=== PATIENT | female | born 1945 | race Caucasian/White ===

== ENCOUNTER → 2021-03-04 | Day surgery (SDC) | payer MEDICARE, OTHER ==
[~2021-03-04] VITALS: Ht 154.9 cm; Wt 46.3 kg
[~2021-03-04] MED LIST: ASPIRIN EC81 MG PO; BONIVA 150MG T150 MG PO; NOVOLOG VI100 UNIT/1 SQ; PAXIL20 MG PO; SIMVASTATIN10 MG PO; SYNTHROID25 MCG PO; TOPROL XL 50 MG50 MG PO; TRESIBA100 UNIT/1 SC
== END | disposition home or self-care (01) ==
LOC: FAS 06:34
DX: Z12.11 Encounter for screening for malignant neoplasm of colon (principal); K63.89 Other specified diseases of intestine; K64.4 Residual hemorrhoidal skin tags; R63.4 Abnormal weight loss; Z80.0 Family history of malignant neoplasm of digestive organs; I10 Essential (primary) hypertension; E11.9 Type 2 diabetes mellitus without complications; E78.00 Pure hypercholesterolemia, unspecified; E03.9 Hypothyroidism, unspecified; I25.10 Atherosclerotic heart disease of native coronary artery without angina pectoris; J44.9 Chronic obstructive pulmonary disease, unspecified; K21.9 Gastro-esophageal reflux disease without esophagitis; E78.5 Hyperlipidemia, unspecified; M81.0 Age-related osteoporosis without current pathological fracture; F17.210 Nicotine dependence, cigarettes, uncomplicated; Z95.1 Presence of aortocoronary bypass graft; Z68.1 Body mass index [BMI] 19.9 or less, adult; Z79.4 Long term (current) use of insulin; Z79.82 Long term (current) use of aspirin; Z79.899 Other long term (current) drug therapy; Z90.710 Acquired absence of both cervix and uterus; Z98.51 Tubal ligation status
CPT/HCPCS: G0105; J2704; J7120